=== PATIENT | female | born 1990 | race Two or more races ===

== ENCOUNTER 2019-01-21 13:18 | Emergency (ER) | payer OTHER ==
[~2019-01-21] VITALS: Ht 154.9 cm; Wt 59.0 kg
[~2019-01-21 13:18] MED LIST: RECTICARE30 GM TP; ULTRACET PO
[2019-01-21] MEDS ORDERED: LO LOESTRIN FE1 EACH (13:34)
== END 2019-01-21 14:53 | disposition home or self-care (01) ==
LOC: ER 13:18
DX: S61.422A Laceration with foreign body of left hand, initial encounter (principal); W45.8XXA Other foreign body or object entering through skin, initial encounter; Y93.89 Activity, other specified; Y92.098 Other place in other non-institutional residence as the place of occurrence of the external cause; Y99.8 Other external cause status

== ENCOUNTER 2019-01-28 18:02 | Emergency (ER) | payer OTHER ==
[~2019-01-28] VITALS: Ht 154.9 cm; Wt 59.0 kg
[~2019-01-28 18:02] MED LIST changes: +LO LOESTRIN FE1 EACH
== END 2019-01-28 20:49 | disposition home or self-care (01) ==
LOC: ER 18:02
DX: Z48.02 Encounter for removal of sutures (principal)

== ENCOUNTER 2024-01-30 06:15 | Day surgery (SDC) | payer OTHER ==
[~2024-01-30] VITALS: Ht 154.9 cm; Wt 61.2 kg
[~2024-01-30 06:15] MED LIST changes: +SPRINTEC 28 DA1 EACH PO
[2024-01-30] MEDS ORDERED: CEFAZOLIN SODIUM 1,000 MG VIAL ONE ×2 (08:12→15:51)
[2024-01-30] MEDS ORDERED: LIDOCAINE HCL 1%/EPINEPHRINE 20ML VIAL IJ ONE (13:15)
[2024-01-30] MEDS ORDERED: FAMOTIDINE/PF 20 MG/10 ML SYRINGE IV SCH (14:30)
[2024-01-30] MEDS ORDERED: CEFAZOLIN SODIUM 1,000 MG VIAL IV SCH (14:30)
[2024-01-30] MEDS ORDERED: FAMOTIDINE/PF 20 MG/2 ML VIAL ONE (15:52)
== END 2024-01-30 17:00 | disposition home or self-care (01) ==
LOC: CIR.AMB 06:15 → SURH 08:15 → EDSTATUS 08:15 → CIR.AMB 08:15
PROVIDERS: ATTEND Specialist
DX: K80.10 Calculus of gallbladder with chronic cholecystitis without obstruction (principal); E16.2 Hypoglycemia, unspecified

== ENCOUNTER 2024-08-26 18:14 | Emergency (ER) | payer OTHER ==
[~2024-08-26] VITALS: Ht 154.9 cm; Wt 59.0 kg
[2024-08-26 20:10] LABS: PH,URINE 5.5 (5.0-8.0); URINE APPEARANCE Clear; URINE BILIRRUBIN Negative (NEGATIVE); URINE BLOOD Small; URINE COLOR Yellow; URINE GLUCOSE Negative (NEGATIVE); URINE KETONE Negative (NEGATIVE); URINE LEUKOCYTE Negative; URINE NITRATE Negative; URINE PROTEIN Negative (NEGATIVE); URINE UROBILINOGEN 0.2 E.U./dl
[2024-08-26 20:15] LABS: URINE BACTERIA 1113.6 uL (0.0-1933); URINE EPITHELIAL CELLS 28.9 uL (0.0-38.8); URINE RBC 8.1 uL (0.0-20.8); URINE WBC 9.3 uL (0.0-23.2)
[2024-08-26 20:47] LABS: URINE CAST 0.14 uL (0.0-1.40)
== END 2024-08-26 21:19 | disposition home or self-care (01) ==
LOC: ER 18:17
PROVIDERS: General Practice
DX: O20.8 Other hemorrhage in early pregnancy (principal); Z3A.01 Less than 8 weeks gestation of pregnancy; N93.9 Abnormal uterine and vaginal bleeding, unspecified; R10.2 Pelvic and perineal pain

== ENCOUNTER → 2024-10-01 08:26 | Outpatient (CLI) | payer OTHER | END | disposition home or self-care (01) | LOC: PRENATAL 08:26 | PROVIDERS: ATTEND Obstetrics & Gynecology Maternal & Fetal Medicine | DX: O36.80X0 Pregnancy with inconclusive fetal viability, not applicable or unspecified (principal); Z36.82 Encounter for antenatal screening for nuchal translucency; Z14.8 Genetic carrier of other disease; Z3A.13 13 weeks gestation of pregnancy ==

== ENCOUNTER → 2024-11-22 12:03 | Outpatient (CLI) | payer OTHER | END | disposition home or self-care (01) | LOC: PRENATAL 12:03 | PROVIDERS: ATTEND Obstetrics & Gynecology Maternal & Fetal Medicine | DX: O44.00 Complete placenta previa NOS or without hemorrhage, unspecified trimester (principal); Z3A.20 20 weeks gestation of pregnancy ==

== ENCOUNTER 2025-02-14 07:57 | Outpatient (CLI) | payer OTHER ==
[~2025-02-14 07:57] MED LIST changes: +AMPICILLIN SOD500 MG PO; +PRENATAL TABLE1 EAC4 PO
== END 2025-02-14 07:58 | disposition home or self-care (01) ==
LOC: PRENATAL 07:57
PROVIDERS: ATTEND Obstetrics & Gynecology Maternal & Fetal Medicine
DX: O26.849 Uterine size-date discrepancy, unspecified trimester (principal); O36.8130 Decreased fetal movements, third trimester, not applicable or unspecified; Z3A.32 32 weeks gestation of pregnancy

== ENCOUNTER 2025-04-04 13:00 | Inpatient (IN) | payer OTHER ==
[~2025-04-04] VITALS: Ht 154.9 cm; Wt 73.0 kg
[2025-04-04 14:40] LABS: URINE APPEARANCE Clear; URINE BILIRRUBIN Negative (NEGATIVE); URINE BLOOD Small; URINE COLOR Yellow; URINE GLUCOSE Negative (NEGATIVE); URINE KETONE Trace (NEGATIVE); URINE LEUKOCYTE Negative; URINE NITRATE Negative; URINE PROTEIN Trace (NEGATIVE); URINE UROBILINOGEN 0.2 E.U./dl
[2025-04-04 14:41] LABS: BASO % 0.2 % (0.1-1.2); EOS # 0.08 (0.04-0.54); EOS % 0.9 % (0.7-7.0); LYMPH # 1.22 (1.18-3.74); LYMPH % 13.1 % (19.3-53.1); MEAN PLATELET VOLUME 9.30 fl (9.4-12.4); MONO # 0.57 (0.24-0.82); MONO % 6.1 % (4.7-12.5); NEUT # 7.40 (1.56-6.13); NEUT % 79.3 % (34.0-71.1)
[2025-04-04 14:43] LABS: URINE BACTERIA 2400.0 uL (0.0-1933); URINE EPITHELIAL CELLS 20.4 uL (0.0-38.8); URINE RBC 23.1 uL (0.0-20.8); URINE WBC 10.3 uL (0.0-23.2)
[2025-04-04 14:49] LABS: RED CELL DISTRIBUTION WIDTH 18.6 % (11.6-14.4)
[2025-04-04 14:51] LABS: URINE CAST 0.58 uL (0.0-1.40)
[2025-04-04 15:00] LABS: INR < 0.93
[2025-04-04 15:09] LABS: ALT/SGPT 17.0 U/L (12-78); AST/SGOT 20.0 U/L (15-37); BILIRUBIN TOTAL 0.5 mg/dL (0.3-1.2); BUN CREA RATIO 12.0 (7.0-25.0); CREATININE SERUM 0.58 mg/dL (0.55-1.02); GFR 120.47; GLOBULINA 3.2 G/DL (2.4-3.5); GLUCOSE FASTING 81.0 mg/dL (65-100); OSMOLALITY SERUM 280.0 MOSM/KG (275-295)
[2025-04-09 18:50] VITALS: BP 109/71
[2025-04-09] MEDS ORDERED: AMPICILLIN SODIUM 2,000 MG VIAL ONE (19:57)
[2025-04-09 21:01] LABS: URINE APPEARANCE Clear; URINE BILIRRUBIN Negative (NEGATIVE); URINE BLOOD Negative; URINE COLOR Yellow; URINE GLUCOSE Negative (NEGATIVE); URINE KETONE 15 (NEGATIVE); URINE LEUKOCYTE Negative; URINE NITRATE Negative; URINE PROTEIN Negative (NEGATIVE); URINE UROBILINOGEN 0.2 E.U./dl
[2025-04-09 21:05] LABS: URINE BACTERIA 27.6 uL (0.0-1933); URINE EPITHELIAL CELLS 2.7 uL (0.0-38.8); URINE RBC 11.1 uL (0.0-20.8); URINE WBC 2.4 uL (0.0-23.2)
[2025-04-09 21:05] LABS: BASO % 0.3 % (0.1-1.2); EOS # 0.04 (0.04-0.54); EOS % 0.3 % (0.7-7.0); LYMPH # 1.50 (1.18-3.74); LYMPH % 12.7 % (19.3-53.1); MEAN PLATELET VOLUME 9.60 fl (9.4-12.4); MONO # 0.69 (0.24-0.82); MONO % 5.8 % (4.7-12.5); NEUT # 9.52 (1.56-6.13); NEUT % 80.6 % (34.0-71.1); RED CELL DISTRIBUTION WIDTH 18.6 % (11.6-14.4)
[2025-04-09 21:14] LABS: URINE CAST 0.14 uL (0.0-1.40)
[2025-04-09 21:36] LABS: BUN CREA RATIO 13.0 (7.0-25.0); CREATININE SERUM 0.54 mg/dL (0.55-1.02); GFR 130.83; GLUCOSE FASTING 61.0 mg/dL (65-100); OSMOLALITY SERUM 279.0 MOSM/KG (275-295)
[2025-04-09 21:37] LABS: ALT/SGPT 18.0 U/L (12-78); AST/SGOT 22.0 U/L (15-37); BILIRUBIN TOTAL 0.51 mg/dL (0.3-1.2); GLOBULINA 3.1 G/DL (2.4-3.5)
[2025-04-09 21:40] LABS: INR < 0.93
[2025-04-09 21:41] VITALS: BP 129/60
[2025-04-09] MEDS ORDERED: MORPHINE SULFATE 4 MG/ML CARTRIDGE IV ONE (22:00)
[2025-04-09] MEDS ORDERED: PROTONIX20 MG PO (22:46)
[2025-04-09 23:24] VITALS: BP 121/61
[2025-04-09] MEDS ORDERED: AMPICILLIN SODIUM 2,000 MG VIAL IV ONE (23:30)
[2025-04-10] VITALS (8 sets, daily range): BP systolic 111–134; BP diastolic 65–83
[2025-04-10] MEDS ORDERED: AMPICILLIN SODIUM 1,000 MG VIAL IV SCH
[2025-04-10] MEDS ORDERED: MORPHINE SULFATE 4 MG/ML CARTRIDGE IV ONE ×2 (03:00→08:15)
[2025-04-10] MEDS ORDERED: OXYTOCIN 20 UNITS/1000ML RL PIGGYBAG IV ONE (10:52)
[2025-04-10] MEDS ORDERED: CHLORHEXIDINE GLUCONATE 120 ML BOTTLE TOP ONE (10:52)
[2025-04-10] MEDS ORDERED: LIDOCAINE HCL 1% 10ML VIAL ONE (10:52)
[2025-04-10] MEDS ORDERED: ERYTHROMYCIN BASE OPHT 1GM EACH TUBE OP ONE ×2 (10:52→14:15)
[2025-04-10] MEDS ORDERED: BENZOCAINE/MENTHOL 90 ML BOTTLE TOP PRN (14:00)
[2025-04-10] MEDS ORDERED: ACETAMINOPHEN 500 MG GEL..CAP PO PRN (14:00)
[2025-04-10] MEDS ORDERED: CHLORHEXIDINE GLUCONATE 120 ML BOTTLE TP SCH (14:15)
[2025-04-10] MEDS ORDERED: LIDOCAINE HCL 1% 10ML VIAL IJ ONE (14:15)
[2025-04-10] MEDS ORDERED: OXYTOCIN 1,000 ML IV SCH (14:15)
[2025-04-10] MEDS ORDERED: DOCUSATE SODIUM 100MG CAP PO SCH (17:00)
[2025-04-11 01:28] VITALS: BP 107/71
[2025-04-11 06:22] LABS: BASO % 0.2 % (0.1-1.2); EOS # 0.03 (0.04-0.54); EOS % 0.2 % (0.7-7.0); LYMPH # 1.90 (1.18-3.74); LYMPH % 11.7 % (19.3-53.1); MEAN PLATELET VOLUME 10.10 fl (9.4-12.4); MONO # 1.21 (0.24-0.82); MONO % 7.5 % (4.7-12.5); NEUT # 13.00 (1.56-6.13); NEUT % 80.0 % (34.0-71.1); RED CELL DISTRIBUTION WIDTH 18.5 % (11.6-14.4)
[2025-04-11 08:00] VITALS: BP 102/64
[2025-04-11] MEDS ORDERED: PNV,CALCIUM 72/IRON/FOLIC ACID 1 TAB TABLET PO SCH (09:00)
[2025-04-11 16:00] VITALS: BP 99/61
[2025-04-12 00:49] VITALS: BP 98/64
[2025-04-12 10:05] VITALS: BP 110/65
== END 2025-04-12 13:38 | disposition home or self-care (01) | DRG 768 ==
LOC: LDR 04-09 19:20 → OB/GYN 04-10 13:30 → LDR 04-11 13:00 → OB/GYN 04-12 13:38
PROVIDERS: Obstetrics & Gynecology; ADMIT Student in an Organized Health Care Education/Training Program; ATTEND Student in an Organized Health Care Education/Training Program
PROC: 4A1HXCZ Monitoring of Products of Conception, Cardiac Rate, External Approach (ICD-10-PCS; 2025-04-09)
PROC: 10E0XZZ Delivery of Products of Conception, External Approach (ICD-10-PCS; principal; 2025-04-10)
PROC: 0DQR0ZZ Repair Anal Sphincter, Open Approach (ICD-10-PCS; 2025-04-10)
PROC: 0W8NXZZ Division of Female Perineum, External Approach (ICD-10-PCS; 2025-04-10)
DX: O70.21 Third degree perineal laceration during delivery, IIIa (principal); Z37.0 Single live birth; O99.02 Anemia complicating childbirth; D64.9 Anemia, unspecified; Z3A.39 39 weeks gestation of pregnancy